=== PATIENT | female | born 1960 | race Caucasian/White ===

== ENCOUNTER 2023-10-19 14:41 | Outpatient (REF) | payer MEDICARE, SELFPAY | END 2023-10-19 14:42 | disposition home or self-care (01) | LOC: HO.BBR 14:41 | PROVIDERS: Visit Provider Internal Medicine | DX: Z13.89 Encounter for screening for other disorder (principal) ==

== ENCOUNTER 2024-04-18 14:57 | Outpatient (REF) | payer MEDICARE, SELFPAY | END 2024-04-18 14:58 | disposition home or self-care (01) | LOC: HO.BBR 14:57 | PROVIDERS: Visit Provider Internal Medicine | DX: Z13.89 Encounter for screening for other disorder (principal) ==

== ENCOUNTER 2025-05-28 14:00 | Outpatient (REF) | payer MEDICARE, SELFPAY ==
--- OUTSIDE RECORDS SUMMARY | 2025-05-28 16:30 | XMS_ITS | Clinical Summary ---
Author Organization [facility] Address [address] [place] [phone] Phone Care Team Providers Care Legal Adviser Name Role Phone Myrtle Salvador MD Primary Care Pr ovider Allergies Active Allergy Reactions Criticality Noted Date Comments Erythromycin Nausea And Vomiting 05/30/2008 Tramadol 10/09/2016 Nausea and vomiting Medications cholecalciferol (VITAMIN D-3) 50 mcg (2,000 unit) capsule Take 1 capsule (2,000 Units total) by mouth 1 (one) time each day. And an extra tablet once a week 4 Active simvastatin (ZOCOR) 20 mg tablet Take 1 tablet (20 mg total) by mouth at bedtime. for 180 days. 90 each 1 5 Active diclofenac (VOLTAREN) 1 % topical gel Apply 2 g topically 2 (two) times a day if needed (pain). 30 g 1 5 Active amLODIPine (NORVASC) 5 mg tablet TAKE 1.5 TABLET (7.5 MG) BY MOUTH DAILY 135 tablet 1 5 Active Active Problems Problem Noted Date Diagnosed Date Osteopenia 01/31/2025 Hypercholesteremia 08/08/2024 Overview (08/08/2024): Calculated ASCVD risk 7.8% Hereditary hemochromatosis (CMS/HCC V24) 024 Vitamin D deficiency 09/20/2020 Lyme disease 02/08/2020 Overview (08/08/2024): Positive IgG on Western blot. Referred to ID Situational anxiety 12/29/2018 Essential hypertension 12/21/2018 Herpes simplex 01/13/2014 Overview (08/08/2024): On buttocks Encounters Date Type Department Care Team Description 05/21/2025 Nurse Triage Adult [facility] [address] [place] [phone] Licha Heck MA 05/16/2025 1:00 PM EDT Office Visit [facility] Hematology Oncology [address] [place] [phone] Latanya Huffman MD Hereditary hemochromatosis (CMS/HCC V24) (Primary Dx) 05/16/2025 Telephone [facility] Hematology Oncology [address] [place] [phone] Karley Pozo [place] 03/09/2025 1:05 PM EDT - 03/09/2025 11:59 PM EDT Hospital Encounter Radiology Department - [address] [phone] Encounter for screening mammogram for breast cancer Discharge Disposition: Home or Self Care from Last 3 Months Immunizations Immunization Administration Dates Next Due Influenza Quadravalent, MDCK , 0.5ml, preservative free (Flucelvax) 6mo and older 06/22/2023,09/19/2020,06/22/2019,2017 Influenza Quadravalent, MDCK , 0.5ml, with preservative (Flucelvax) 6mo and older 06/28/2017 Influenza trivalent, 0.5mL ( Fluad) 65yo and older 10/11/2024 Influenza trivalent, 0.5mL, preservative free (Fluarix; FluLaval; Fluzone) ages 6mo and older (Afluria) 3 years and older 07/02/2016,05/14/2015 Td, Unspecified 05/04/2005 Tdap Tetanus diptheria acell ular pertussis (Boostrix; Adacel) 7yo and older 12/22/2023,11/30/2012 Surgical History Surgery Date Site/Laterality Comments WISDOM TOOTH EXTRACTION PROCEDURE: HISTORICAL WISDOM TEETH EXTRACTION Medical History Medical History Date Comments Other diseases of lung, not elsewhere classified DX:Other diseases of lung, n ot elsewhere classified Venereal disease, unspecified DX :Venereal disease, unspecified; COMMENT: hsv Herpes simplex 01/13/2014 DX:Herpes simple x; COMMENT: On buttocks Hyperlipidemia DX:Hyperlipidemi a Situational anxiety 12/29/2018 Essential hypertension 12/21/2018 Family History Medical History Relation Name Comments Diabetes Father age 77 , cardia c shunt Other cancer Maternal Grandmother lung Kidney failure Mother Other cancer Paternal Grandfather liver Leukemia Paternal Grandmother age 84 Breast cancer Neg Hx Colon cancer Neg Hx Ovarian cancer Neg Hx Uterine cancer Neg Hx Relation Name Status Comments Father Alive Maternal Grandmother Mother (Age 86) Paternal Grandfather Paternal Grandmother Social History Tobacco Use Types Packs/Day Years Used Date Smoking Tobacco: Never Cigarettes Qu it: 05/30/2006 Smokeless Tobacco: Never Tobacco Cessation:Counseling Given: Not Answered Alcohol Use Standard Drinks/Week Comments Not Currently 0 (1 standard drink = 0.6 oz pur e alcohol) Comments No Sex and Gender Information Value Date Recorded Sex Assigned at Not on file Legal Sex Female 9:40 AM EST Gender Identity Not on file Sexual Orientation Not on file Obstetrics History Para Term AB IAB SAB Ectopic Multiple Livin g Live Births 1 1 1 1 Date Outcome GA Total Labor Labor/2nd/3rd Weight Sex Type Anes PTL Jessica A1 A5 Name Clin Term Last Filed Vital Signs Vital Sign Reading Time Taken Comments Blood Pressure 152/79 05/16/2025 1:03 PM EDT Pulse 88 05/16/2025 1:03 PM EDT Temperature 36.8 C (98.3 F) 05/16/2025 1:03 PM EDT Respiratory Rate 14 12/21/2024 1:00 PM EDT Oxygen Saturation 99% 05/16/2025 1:03 PM EDT Inhaled Oxygen Concentration - - Weight 75.3 kg (166 lb) 05/16/2025 1:03 PM EDT Height 149.9 cm (4' 11 ) 05/16/2025 1:03 PM EDT Body Mass Index 33.53 05/16/2025 1:03 PM EDT Plan of Treatment Upcoming Encounters Date Type Department Care Team (Late st Contact Info) Description 05/30/2025 1:30 PM EDT Office Visit Adult Medicine [address] [phone] Lindy Collins PA [address] [place] [address] 06/27/2025 12:45 PM EST Office Visit Adult [address] [phone] Myrtle Salvador MD [address] [place] [address] 04/25/2026 1:00 PM EDT Office Visit [facility] Hematology Oncology [address] [place] [phone] Latanya Huffman MD [address] [place] [address] Health Maintenance Due Date Last Done Comments Pneumococcal Vaccine: 50+ Years (1 of 1 - PCV) 2008 Zoster Vaccines (1 of 2) 2008 Medicare Annual Wellness Visit 08/01/2022 Social Influencers of Health Screening 08/01/2022 Falls Risk Assessment 2023 Depression Screening 08/23/2024 COVID-19 Vaccine ( season) 2025 Influenza Vaccine (#1) 2025 , 06/22/2023, 09/19/2020, Additional history exists Hypertension/CHF/CAD Annual BMP Blood Test 10/11/2025 10/11/2024, 02/28/2024, 02/28/2024 Breast Cancer Screening 03/09/2027 03/09/20 25, 12/07/2023, 11/18/2023, Additional history exists Colorectal Cancer Screening: FIT-DNA (Cologuard) 11/03/2027 11/02/2024, 11/02/2024, 11/02/2024 Cholesterol Screening (Lipid Panel) 10/11/2029 10/11/2024, 02/28/2024, 02/28/2024 RSV Immunization Adult Patients (1 - 1-dose 75+ series) 2033 DTaP,Tdap,and Td Vaccines (4 - Td or Tdap) 12/21/2033 12/22/2023, 11/30/2012, 05/04/2005 Osteoporosis Screening (Bone Density Screening) 01/30/2035 01/30/2025 Hepatitis C Screening Completed 01/14/2016 HIB Vaccines Aged Out No longer eligi ble based on patient's age to complete this topic HPV Vaccines Aged Out No longer eligi ble based on patient's age to complete this topic Hepatitis A Vaccines Aged Out No long er eligible based on patient's age to complete this topic Hepatitis B Vaccines Aged Out No long er eligible based on patient's age to complete this topic IPV Vaccines Aged Out No longer eligi ble based on patient's age to complete this topic MMR Vaccines Aged Out No longer eligi ble based on patient's age to complete this topic Meningococcal ACWY Vaccine Aged Out N o longer eligible based on patient's age to complete this topic Meningococcal B Vaccine Aged Out No l onger eligible based on patient's age to complete this topic RSV Immunization Patients Under 20 months Aged Out No longer eligible based on patient's age to complete this topic Varicella Vaccines Aged Out No longer eligible based on patient's age to complete this topic Procedures Procedure Name Priority Date/Time Associated Diagnosis Comments CBC WITH AUTO DIFFERENTIAL Routine 05/08/2025 12:51 PM EDT Hereditary hemochromatosis (CMS/HCC V24) HEPATIC FUNCTION PANEL Routine 05/08/2025 12:51 PM EDT Hereditary hemochromatosis (CMS/HCC V24) IRON AND TIBC Routine 05/08/2025 12:51 PM EDT Hereditary hemochromatosis (CMS/HCC V24) FERRITIN Routine 05/08/2025 12:51 PM EDT Hereditary hemochromatosis (CMS/HCC V24) CBC AND DIFFERENTIAL Routine 05/08/2025 12:51 PM EDT Hereditary hemochromatosis (CMS/HCC V24) MG MAMMO DIGITAL SCREENING W FLOYD BILAT Routine 03/09/2025 1:16 PM EDT Encounter for screening mammogram for breast cancer BD BONE DENSITY DXA AXIAL SKELETON Routine 01/30/2025 1:20 PM EDT Essential hypertension Hypercholesteremia Hereditary hemochromatosis (CMS/HCC V24) Postmenopausal status LAB COLOGUARD COLON CANCER SCREEN Routine 11/02/2024 7:30 AM EDT Screen for colon cancer COMPREHENSIVE METABOLIC PANEL Routine 10/11/2024 1:51 PM EST Essential hypertension LIPID PANEL WITH REFLEX TO DIRECT LDL Routine 10/11/2024 1:51 PM EST Hypercholesteremia HEPATITIS C SCREENING Routine 01/14/2016 from Last 3 Months or Most Recently Relevant to Health Maintenance Results * (ABNORMAL) CBC auto differential (05/08/2025 12:51 PM EDT) WBC 8.6 4.8 - 10.8 K/mcL LAB HEMETOLOGY METHOD 05/08/2025 1:51 PM EDT [facility] RBC 4.90(H) 3.80 - 4.80 M/mcL LAB HEMETOLOGY METHOD 05/08/2025 1:51 PM EDT [facility] Hemoglobin 15.1 11.5 - 16.0 g/dL LAB HEMETOLOGY METHOD 05/08/2025 1:51 PM EDT [facility] Hematocrit 44.5 35.0 - 47.0 % LAB HEMETOLOGY METHOD 05/08/2025 1:51 PM EDT [facility] MCV 91.0 79.0 - 98.0 FL LAB HEMETOLOGY METHOD 05/08/2025 1:51 PM EDT [facility] MCH 30.9 27.0 - 32.0 pcg LAB HEMETOLOGY METHOD 05/08/2025 1:51 PM [facility] MCHC 33.9 32.0 - 37.0 g/dL LAB HEMETOLOGY METHOD 05/08/2025 1:51 PM [facility] RDW 13.7 11.0 - 15.0 % LAB HEMETOLOGY METHOD 05/08/2025 1:51 PM T [facility] Platelets 270 130 - 400 K/mcL LAB HEMETOLOGY METHOD 05/08/2025 1:51 PM [facility] MPV 10.1 7.0 - 11.0 FL LAB HEMETOLOGY METHOD 05/08/2025 1:51 PM [facility] NRBC 0.0 <1.0 % LAB HEMETOLOGY METHOD 05/08/2025 1:51 PM [facility] NRBC Absolute 0.00 <0.10 K/mcL LAB HEMETOLOGY METHOD 05/08/2025 1:51 PM [facility] Neutrophils Relative 67.4 % LAB HEMETOLOGY METHOD 05/08/2025 1:51 PM [facility] Lymphocytes Relative 22.6 % LAB HEMETOLOGY METHOD 05/08/2025 1:51 PM [facility] Monocytes Relative 8.5 % LAB HEMETOLOGY METHOD 05/08/2025 1:51 PM [facility] Eosinophils Relative 0.6 % LAB HEMETOLOGY METHOD 05/08/2025 1:51 PM [facility] Basophils Relative 0.7 % LAB HEMETOLOGY METHOD 05/08/2025 1:51 PM [facility] Immature Granulocytes Relative 0.2 % LAB HEMETOLOGY METHOD 05/08/2025 1:51 PM EDT [facility] Neutrophils Absolute 5.77 1.50 - 7.00 K/mcL LAB HEMETOLOGY METHOD 05/08/2025 1:51 PM EDT [facility] Lymphocytes Absolute 1.94 1.00 - 5.00 K/mcL LAB HEMETOLOGY METHOD 05/08/2025 1:51 PM EDT [facility] Monocytes Absolute 0.73 0.20 - 1.00 K/mcL LAB HEMETOLOGY METHOD 05/08/2025 1:51 PM EDT [facility] Eosinophils Absolute 0.05 0.00 - 0.50 K/mcL LAB HEMETOLOGY METHOD 05/08/2025 1:51 PM EDT [facility] Basophils Absolute 0.06 0.00 - 0.20 K/mcL LAB HEMETOLOGY METHOD 05/08/2025 1:51 PM EDT [facility] Immature Granulocytes Absolute 0.02 0.00 - 0.03 K/mcL LAB HEMETOLOGY METHOD 05/08/2025 1:51 PM EDT [facility] Blood Venous blood specimen / Unknown Venipuncture / Unknown 05/08/2025 12:51 PM EDT 05/08/2025 1:46 PM EDT Latanya Huffman MD LAB BLOOD ORDERABLES Final R esult [facility] [address] [place] [address], * (ABNORMAL) Iron and TIBC (05/08/2025 12:51 PM EDT) Iron 214(H) 40 - 150 mcg/dL LAB CHEMISTRY METHOD 05/08/2025 2:16 PM EDT [facility] TIBC 267 250 - 450 mcg/dL LAB CHEMISTRY METHOD 05/08/2025 2:16 PM EDT [facility] Iron Saturation 80(H) 15 - 50 % LAB CHEMISTRY METHOD 05/08/2025 2:16 PM EDT [facility] Blood Venous blood specimen / Unknown Venipuncture / Unknown 05/08/2025 12:51 PM EDT 05/08/2025 1:45 PM EDT Latanya Huffman MD LAB BLOOD ORDERABLES Final R esult Performing Organization Address City/[facility]/ZIP Co de Phone Number [facility] [address] [place] [address], [place] [phone] * Ferritin (05/08/2025 12:51 PM EDT) [facility] Ferritin 162 8 - 252 ng/mL LAB CHEMISTRY METHOD 05/08/2025 2:19 PM EDT [facility] Blood Venous blood specimen / Unknown Venipuncture / Unknown 05/08/2025 12:51 PM EDT 05/08/2025 1:45 PM EDT Latanya Huffman MD LAB BLOOD ORDERABLES Final R esult Performing Organization Address City/[facility]/ZIP Co de Phone Number [facility] [address] [place] [address], [place] [phone] * Hepatic function panel (05/08/2025 12:51 PM EDT) [facility] Total Protein 7.1 6.0 - 8.0 g/dL LAB CHEMISTRY METHOD 05/08/2025 2:19 PM EDT [facility] Albumin 4.2 3.2 - 5.0 g/dL LAB CHEMISTRY METHOD 05/08/2025 2:19 PM EDT [facility] Total Bilirubin 0.7 0.0 - 1.4 mg/dL LAB CHEMISTRY METHOD 05/08/2025 2:19 PM EDT [facility] Bilirubin, Direct 0.2 0.0 - 0.3 mg/dL LAB CHEMISTRY METHOD 05/08/2025 2:19 PM EDT [facility] Bilirubin, Indirect 0.5 0.0 - 1.1 mg/dL LAB CHEMISTRY METHOD 05/08/2025 2:19 PM EDT [facility] ALT (SGPT) 27 10 - 60 unit/L LAB CHEMISTRY METHOD 05/08/2025 2:19 PM EDT [facility] AST (SGOT) 25 10 - 42 unit/L LAB CHEMISTRY METHOD 05/08/2025 2:19 PM EDT [facility] Alkaline Phosphatase 74 42 - 121 unit/L LAB CHEMISTRY METHOD 05/08/2025 2:19 PM EDT [facility] Blood Venous blood specimen / Unknown Venipuncture / Unknown 05/08/2025 12:51 PM EDT 05/08/2025 1:45 PM EDT Latanya Dereje Huffman MD LAB BLOOD ORDERABLES Final R esult [facility] [address] [place] [address], [place] [phone] * MG Mammo Digital Screening w Floyd bilat (03/09/2025 1:16 PM EDT) Anatomical Region Laterality Modality Breast Bilateral Mammography 03/12/2025 6:08 PM EDT Impressions 03/12/2025 6:09 PM EDT No mammographic evidence of malignancy. BREAST DENSITY: C - The breasts are heterogeneously dense which may obscure small masses. BI-RADS CATEGORY: 1 - NEGATIVE RECOMMENDATION: Screening bilateral mammogram is recommended in 1 year. MAMMO LOCATION: [facility], [address] [place] [address], [phone], . -------- FINAL REPORT -------- Dictated By: Angelina Lewis Dictated Date: 03/12/2025 18:08 ET Assigned Physician: Angelina Lewis Reviewed and Electronically Signed By: Angelina Lewis Signed Date: 03/12/2025 18:09 ET Workstation ID: [id number] Transcribed By: Self Edit Transcribed Date: 03/12/2025 18:08 ET Narrative 03/12/2025 6:09 PM EDT EXAM: Screening Mammogram CLINICAL: 64 years old, Female, routine annual exam. COMPARISON: 11/10/2023 and as far back as 11/05/2020 TECHNIQUE: Bilateral MLO and CC views were obtained digitally with 3-D mammogram (digital breast tomosynthesis). Computer-aided detection was utilized in evaluation of this exam (CAD). FINDINGS: No new suspicious mass, architectural distortion, or suspicious calcifications. Procedure Note Angelina Lewis MD - 03/12/2025 EXAM: Screening Mammogram CLINICAL: 64 years old, Female, routine annual exam. COMPARISON: 11/10/2023 and as far back as 11/05/2020 TECHNIQUE: Bilateral MLO and CC views were obtained digitally with 3-Dmammogram (digital breast tomosynthesis). Computer-aided detection wasutilized in evaluation of this exam (CAD). FINDINGS: No new suspicious mass, architectural distortion, or suspiciouscalcifications. IMPRESSION: No mammographic evidence of malignancy. BREAST DENSITY: C - The breasts are heterogeneously dense which mayobscure small masses. BI-RADS CATEGORY: 1 - NEGATIVE RECOMMENDATION: Screening bilateral mammogram is recommended in 1 year. MAMMO LOCATION: [facility], [address] [place] [address], [phone], . -------- FINAL REPORT -------- Dictated By: Angelina Lewis Dictated Date: 03/12/2025 18:08 ET Assigned Physician: Angelina Lewis Reviewed and Electronically Signed By: Angelina Lewis Signed Date: 03/12/2025 18:09 ET Workstation ID: [id number] Transcribed By: Self Edit Transcribed Date: 03/12/2025 18:08 ET Myrtle Salvador MD IM BI PROCEDURE S Final Result * BD Bone Density DXA Axial Skeleton (01/30/2025 1:20 PM EDT) Anatomical Region Laterality Modality Wrist, Hip, L-spine Bone Densito metry 01/30/2025 7:18 PM EDT Impressions 01/30/2025 7:19 PM EDT Osteopenia. The NOF guidelines recommend that FDA approved medical therapies be considered in postmenopausal women and men age >50 years with a: i. Hip or vertebral (clinical or morphometric) fracture ii. T score of < -2.5 at the spine or hip iii. 10 year fracture probability by FRAX of >3% for hip fracture, or >20% for major osteoporotic fracture PLEASE NOTE: W.H.O. classification is based on lowest measured density at the spine, femoral neck, or total hip.This classification has prognostic significance when applied to post menopausal women and older men. 1) The World Health Organization defines low BMD as follows: T-score Normal at or > -1 Osteopenia < -1 and > -2.5 Osteoporosis at or < -2.5 without fractures Established osteoporosis < -2.5 with fractures -------- FINAL REPORT -------- Dictated By: Mango Guzman Dictated Date: 01/30/2025 19:18 ET Assigned Physician: Mango Guzman Reviewed and Electronically Signed By: Mango Guzman Signed Date: 01/30/2025 19:19 ET Workstation ID: [id number] Transcribed By: Self Edit Transcribed Date: 01/30/2025 19:18 ET Narrative 01/30/2025 7:19 PM EDT Clinical history: screening Scans of the lumbar spine and hips were performed on a [employer] Ber[employer] fan beam bone densitometer. Bone mineral density measurements and associated T and Z scores respectively are as follows: Lumbar Spine: L1-L4 BMD: 1.045 g/cm2 T-Score: 0 Z-Score: 1.8 Left Proximal Femur: Neck BMD: 0.721 g/cm2 T-Score: -1.2 Z-Score: 0.4 Total BMD: 0.951 g/cm2 T-Score: 0.1 Z-Score: 1.4 Compared with standards for the young adult, lowest measured bone density places the patient in the W.H.O. osteopenic range. FRAX 10 year probability of major osteoporotic fracture: 14% FRAX 10 year probability of hip fracture: 0.8% Population: [place] () Procedure Note Mango Guzman MD - 01/30/2025 Clinical history: screening Scans of the lumbar spine and hips were performed on a [employer] beam bone densitometer. Bone mineral density measurements and associated T and Z scoresrespectively are as follows: Lumbar Spine: L1-L4 BMD: 1.045 g/cm2 T-Score: 0 Z-Score: 1.8 Left Proximal Femur: Neck BMD: 0.721 g/cm2 T-Score: -1.2 Z-Score: 0.4 Total BMD: 0.951 g/cm2 T-Score: 0.1 Z-Score: 1.4 Compared with standards for the young adult, lowest measured bone densityplaces the patient in the W.H.O. osteopenic range. FRAX 10 year probability of major osteoporotic fracture: 14% FRAX 10 year probability of hip fracture: 0.8% Population: [place] () IMPRESSION: Osteopenia. The NOF guidelines recommend that FDA approved medical therapies beconsidered in postmenopausal women and men age >50 years with a: i. Hip or vertebral (clinical or morphometric) fracture ii. T score of < -2.5 at the spine or hip iii. 10 year fracture probability by FRAX of >3% for hip fracture, or >20%for major osteoporotic fracture PLEASE NOTE: W.H.O. classification is based on lowest measured density at the spine,femoral neck, or total hip.This classification has prognostic significancewhen applied to post menopausal women and older men. 1) The World Health Organization defines low BMD as follows: T-score Normal at or > -1 Osteopenia < -1 and > -2.5 Osteoporosis at or < -2.5 withoutfractures Established osteoporosis < -2.5 with fractures -------- FINAL REPORT -------- Dictated By: Mango Guzman Dictated Date: 01/30/2025 19:18 ET Assigned Physician: Mango Guzman Reviewed and Electronically Signed By: Mango Guzman Signed Date: 01/30/2025 19:19 ET Workstation ID: [id number] Transcribed By: Self Edit Transcribed Date: 01/30/2025 19:18 ET Lindy KILLIAN IMG DXA PROCEDURES Final Resu lt * Cologuard?? colon cancer screening (11/02/2024 7:30 AM EDT) COLOGUARD Negative Negative [facility] Comment: NEGATIVE TEST RESULT. A negative Cologuard result indicates a low likelihood that a colorectal cancer (CRC) or advanced adenoma (adenomatous polyps with more advanced pre-malignant features) is present. The chance that a person with a negative Cologuard test has a colorectal cancer is less than 1 in 1500 (negative predictive value >99.9%) or has an advanced adenoma is less than 5.3% (negative predictive value 94.7%). These data are based on a prospective cross-sectional study of 10,000 individuals at average risk for colorectal cancer who were screened with both Cologuard and colonoscopy. (Akash Rankin al, N Engl J Med 2014;370(14):5852-6859) The normal value (reference range) for this assay is negative. COLOGUARD RE-SCREENING RECOMMENDATION: Periodic colorectal cancer screening is an important part of preventive healthcare for asymptomatic individuals at average risk for colorectal cancer. Following a negative Cologuard result, the [place] [employer] and U.S. Multi-Society Task Force screening guidelines recommend a Cologuard re-screening interval of 3 years. References: [place] [employer] Guideline for Colorectal Cancer Screening: https://www.cancer.org/cancer/ulkrs-wrgduv-xlmzxu/rexbjiqfk-djsivcdaf-zlvmopp/ac s-rec ommendations.html.; Alejandro DK, Helen CR, Gómez FrederickK, Colorectal Cancer Screening: Recommendations for Physicians and Patients from the U.S. Multi-Society Task Force on Colorectal Cancer Screening , Am J Gastroenterology 2017; 112:1651-3472. TEST DESCRIPTION: Composite algorithmic analysis of stool DNA-biomarkers with hemoglobin immunoassay. Quantitative values of individual biomarkers are not reportable and are not associated with individual biomarker result reference ranges. Cologuard is intended for colorectal cancer screening of adults of either sex, 45 years or older, who are at average-risk for colorectal cancer (CRC). Cologuard has been approved for use by the U.S. FDA. The performance of Cologuard was established in a cross sectional study of average-risk adults aged 50-84. Cologuard performance in patients ages 45 to 49 years was estimated by sub-group analysis of near-age groups. Colonoscopies performed for a positive result may find as the most clinically significant lesion: colorectal cancer [4.0%], advanced adenoma (including sessile serrated polyps greater than or equal to 1cm diameter) [20%] or non- advanced adenoma [31%]; or no colorectal neoplasia [45%]. These estimates are derived from a prospective cross-sectional screening study of 10,000 individuals at average risk for colorectal cancer who were screened with both Cologuard and colonoscopy. (Akash Rankin al, N Engl J Med 2014;370(14):4597-5272.) Cologuard may produce a false negative or false positive result (no colorectal cancer or precancerous polyp present at colonoscopy follow up). A negative Cologuard test result does not guarantee the absence of CRC or advanced adenoma (pre-cancer). The current Cologuard screening interval is every 3 years. ([place] [employer] and U.S. Multi-Society Task Force). Cologuard performance data in a 10,000 patient pivotal study using colonoscopy as the reference method can be accessed at the following location: www.[employer]okle/results. Additional description of the Cologuard test process, warnings and precautions can be found at www.cologuard.com. Stool 11/02/2024 7:30 AM EDT 11/03/2024 10:47 AM EDT us Lindy KILLIAN [facility] MOLECULAR DIAGNOSTICS ORD ERABLES Final Result [employer] [address] [employer] [place]ITA [place] [id number] [place] [id number] * Lipid panel with reflex to direct LDL (10/11/2024 1:51 PM EST) Cholesterol 171 0 - 200 mg/dL LAB CHEMISTRY METHOD 10/11/2024 5:02 PM [facility] Triglycerides 85 0 - 150 mg/dL LAB CHEMISTRY METHOD 10/11/2024 5:02 PM [facility] HDL 85 >=40 mg/dL LAB CHEMISTRY METHOD 10/11/2024 5:02 PM [facility] LDL Calculated 69 0 - 100 mg/dL LAB CHEMISTRY METHOD 10/11/2024 5:02 PM [facility] VLDL Cholesterol Matthew 17 mg/dL LAB CHEMISTRY METHOD 10/11/2024 5:02 PM [facility] Non HDL Chol. (LDL+VLDL) 86 <145 mg/dL LAB CHEMISTRY METHOD 10/11/2024 5:02 PM [facility] Chol/HDL Ratio 2.0 0.0 - 4.4 LAB CHEMISTRY METHOD 10/11/2024 5:02 PM [facility] Blood Venous blood specimen / Unknown Venipuncture / Unknown 10/11/2024 1:51 PM EST 10/11/2024 1:51 PM EST Lindy KILLIAN LAB BLOOD ORDERABLES Final Re sult [facility] [address] [place] [address], * (ABNORMAL) Comprehensive metabolic panel (10/11/2024 1:51 PM EST) [facility] Sodium 140 133 - 145 mmol/L LAB CHEMISTRY METHOD 10/11/2024 4:59 PM [facility] Potassium 4.4 3.5 - 5.5 mmol/L LAB CHEMISTRY METHOD 10/11/2024 4:59 PM [facility] Chloride 105 96 - 110 mmol/L LAB CHEMISTRY METHOD 10/11/2024 4:59 PM [facility] CO2 26 21 - 32 mmol/L LAB CHEMISTRY METHOD 10/11/2024 4:59 PM [facility] Anion Gap 9 3 - 11 LAB CHEMISTRY METHOD 10/11/2024 4:59 PM [facility] Glucose 91 70 - 100 mg/dL LAB CHEMISTRY METHOD 10/11/2024 4:59 PM [facility] BUN 13 5 - 25 mg/dL LAB CHEMISTRY METHOD 10/11/2024 4:59 PM [facility] Creatinine 0.72 0.50 - 1.10 mg/dL LAB CHEMISTRY METHOD 10/11/2024 4:59 PM [facility] eGFR 92 >=60 mL/min/1. 73m2 LAB CHEMISTRY METHOD 10/11/2024 4:59 PM [facility] Comment:Calculation based on the Chronic Kidney Disease Epidemiology Collaboration (CKD-EPI) equation refit without adjustment for race. BUN/Creatinine Ratio 18.1 LAB CHEMISTRY METHOD 10/11/2024 4:59 PM [facility] Calcium 10.6(H) 8.5 - 10.5 mg/dL LAB CHEMISTRY METHOD 10/11/2024 4:59 PM [facility] AST (SGOT) 20 10 - 42 unit/L LAB CHEMISTRY METHOD 10/11/2024 4:59 PM [facility] ALT (SGPT) 28 10 - 60 unit/L LAB CHEMISTRY METHOD 10/11/2024 4:59 PM [facility] Alkaline Phosphatase 70 42 - 121 unit/L LAB CHEMISTRY METHOD 10/11/2024 4:59 PM [facility] Total Protein 7.8 6.0 - 8.0 g/dL LAB CHEMISTRY METHOD 10/11/2024 4:59 PM [facility] Albumin 4.8 3.2 - 5.0 g/dL LAB CHEMISTRY METHOD 10/11/2024 4:59 PM [facility] Total Bilirubin 0.8 0.0 - 1.4 mg/dL LAB CHEMISTRY METHOD 10/11/2024 4:59 PM EST [facility] Blood Venous blood specimen / Unknown Venipuncture / Unknown 10/11/2024 1:51 PM EST 10/11/2024 1:51 PM EST Lindy KILLIAN LAB BLOOD ORDERABLES Final Re sult [facility] [address] [place] [address], [place] [phone] * Hepatitis C Screening (01/14/2016) [facility] Hepatitis C Screening Abstracted Historical Provider HEALTH MAINTENANCE Final Result from Last 3 Months or Most Recently Relevant to Health Maintenance Insurance MEDICAID - [place] [employer] MEDICARE Care Teams Legal Adviser Relationship Specialty Start Date End Date Myrtle Salvador MD [address] [place], [place] PCP - General Internal Medicine 03/09/22
--- OUTSIDE RECORDS SUMMARY | 2025-05-28 16:30 | XMS_ITS | Clinical Summary ---
Author Organization [facility] Address [address] [place] [id number] Phone Care Team Providers Care Predictive Maintenance Specialist Name Role Phone Aydee Lehman MD Primary Care Provider Allergies No known active allergies Medications amLODIPine (NORVASC) 5 MG tablet Take 5 mg by mouth daily. Active Active Problems Problem Noted Date Diagnosed Date Lyme disease 09/19/2020 Assessment & Plan (09/19/2020 1:33 PM EST): The patient's labs from May are exactly what I would expect if she had treated Lyme disease in February. IgM is an early antibody, but may be negative at the time of diagnosis. Treatment with antibiotics may blunt the IgM response, but the diagnosis is mainly a clinical one. IgM, when present, is not long-lasting and it is not surprising that it was negative in May IgG however, which is later to develop, is long-lasting and may persist indefinitely. Given that the patient did quite well clinically, I would not expect her to develop any post Lyme symptoms at this point. I did review Lyme prevention techniques, including wardrobe choices, permethrin on her close, DEET on her skin, behavior while in the brush, and most importantly, nightly take checks. If she finds a tick and she knows it has been present for less than 24 hours she can remove it. If she finds a tick embedded and believes it has been present for more than 24 hours she should call her provider for short course of doxycycline. Family History Relation Status Comments Father Alive Mother Social History Tobacco Use Types Packs/Day Years Used Date Smoking Tobacco: Former Alcohol Use Standard Drinks/Week Comments Yes 1 (1 standard drink = 0.6 oz pur e alcohol) Education Answer Date Recorded Are you interested in more education? Not on devin e 12/18/2022 Are you concerned about learning? Not on file 12/18/2022 No 12/18/2022 No 12/18/2022 Digital Access Answer Date Recorded No 01/16/2023 No 01/16/2023 No 01/16/2023 Reliable internet access at home? Not on file 01/16/2023 Device with a working camera? Not on file Comments Unknown Sex and Gender Information Value Date Recorded Sex Assigned at Not on file Legal Sex Female 9:07 AM EST Gender Identity Not on file Sexual Orientation Not on file Last Filed Vital Signs Vital Sign Reading Time Taken Comments Blood Pressure 144/78 09/19/2020 12:57 PM EST Pulse 96 09/19/2020 12:57 PM EST Temperature 36.6 C (97.8 F) 09/19/2020 12:57 PM EST Respiratory Rate - - Oxygen Saturation 97% 09/19/2020 12:57 PM EST Inhaled Oxygen Concentration - - Weight 78.5 kg (173 lb) 09/19/2020 12:57 PM EST Height - - Body Mass Index - - Plan of Treatment Health Maintenance Due Date Last Done Comments LIPID PANEL 1958 DEPRESSION SCREENING 1970 SMOKING Hx and SMOKELESS TOBACCO SCREENING 1971 HEPATITIS C SCREENING 1976 MAMMOGRAM 1998 COLOGUARD 2003 COLONOSCOPY 2003 COLORECTAL CANCER SCREENING 2003 FIT TEST 2003 FOBT 2003 SIGMOIDOSCOPY 2003 VIRTUAL COLONOSCOPY 2003 PNEUMOCOCCAL VACCINES (50+ years) (1 of 1 - PCV) 2008 ZOSTER VACCINES (1 of 2) 2008 Adult Td,Tdap Booster 11/30/2022 11/30/2012, 005 OSTEOPOROSIS SCREENING INITIAL (ONE-TIME) 2023 INFLUENZA VACCINE (#1) 2025 , 06/22/2019, 06/09/2018, Additional history exists COVID-19 VACCINE ( - 2024- season) 2025 RSV VACCINE (1 - 1-dose 75+ series) 2033 HEPATITIS A VACCINES Aged Out No long er eligible based on patient's age to complete this topic HIB VACCINES Aged Out No longer eligi ble based on patient's age to complete this topic MENINGOCOCCAL VACCINES (ACWY) Aged Out No longer eligible based on patient's age to complete this topic MENINGOCOCCAL VACCINES (B) Aged Out N o longer eligible based on patient's age to complete this topic Medical Devices Not on file Insurance [facility] [place] [id number] [facility] [place] [id number] [facility] [place] [facility] [place] Address: [address] [address] Care Teams Predictive Maintenance Specialist Relationship Specialty Start Date End Date Aydee Lehman MD PCP - General Internal Medicine 09/19/20 Additional Source Comments The information contained in this document represents components of the legal health record. It is not the complete legal health record.[facility]
--- OUTSIDE RECORDS SUMMARY | 2025-05-28 16:30 | XMS_ITS | Clinical Summary ---
Author Organization [facility] Address [address] [place] [address] Care Team Providers Care Marine Structural Welder Name Role Phone Myrtle Salvador MD Primary Care Pr ovider Allergies No known active allergies Medications Medication Sig Dispensed Refills Start Date End Date Status cyclobenzaprine (FLEXERIL) 10 MG tablet Take 1 tablet (10 mg total) by mouth 3 (three) times a day as needed. 0 Active amLODIPine (NORVASC) tablet 5 mg Take 1 tablet (5 mg total) by mouth daily. 0 Active Cholecalciferol 50 MCG (2000 UT) CAPS Take by mouth. 0 Active Triamcinolone Acetonide 55 MCG/ACT AERO spray or apply inside Nose. 0 Active simvastatin (ZOCOR) tablet 10 mg Take 1 tablet (10 mg total) by mouth every night at bedtime. 0 Active Active Problems No known active problems Social History Tobacco Use Types Packs/Day Years Used Date Smoking Tobacco: Never Smokeless Tobacco: Never Tobacco Cessation:Counseling Given: Not Answered Alcohol Use Standard Drinks/Week Comments Not Currently 0 (1 standard drink = 0.6 oz pur e alcohol) Sex and Gender Information Value Date Recorded Sex Assigned at Not on file Gender Identity Not on file Sexual Orientation Not on file Job Start Date Occupation Industry Not on file Not on file Not on file Last Filed Vital Signs Vital Sign Reading Time Taken Comments Blood Pressure 144/78 06/14/2024 1:39 PM EDT Pulse 94 06/14/2024 1:39 PM EDT Temperature 37.3 C (99.1 F) 06/14/2024 1:39 PM EDT Respiratory Rate - - Oxygen Saturation 98% 06/14/2024 1:39 PM EDT Inhaled Oxygen Concentration - - Weight 74.4 kg (164 lb) 06/14/2024 1:39 PM EDT Height 149.9 cm (4' 11 ) 09/29/2023 1:35 PM EST Body Mass Index 33.12 09/29/2023 1:35 PM EST Plan of Treatment Health Maintenance Due Date Last Done Comments Hepatitis C Screening 1960 COVID-19 Vaccine (#1) 03/05/1959 Depression Screening 1970 Preventative Health Evaluation 1976 Colon Cancer Screening (Colonoscopy) 2003 Breast Cancer Screening (Mammogram) 2008 Shingrix-Zoster Vaccine (1 of 2) 2008 Fall Risk Assessment 2023 Osteoporosis Screening (DEXA Scan) 2023 Pneumococcal Vaccine (1 of 1 - PCV) 2023 Influenza Vaccine (#1) 2025 3, 09/19/2020, 06/22/2019, Additional history exists RSV Adult > 60+ Yrs or (1 - 1-dose 75+ series) 2033 DTap / Tdap / Td (3 - Td or Tdap) 12/21/2033 12/22/2023, 11/30/2012 Hepatitis B Vaccines Aged Out No long er eligible based on patient's age to complete this topic RSV Ped < 20 months Aged Out No longe r eligible based on patient's age to complete this topic Care Teams Marine Structural Welder Relationship Specialty Start Date End Date Myrtle Salvador MD [address] [place] [address] PCP - General 07/30/23
== END 2025-05-28 14:01 | disposition home or self-care (01) ==
LOC: HO.BBR 14:00
PROVIDERS: PCP Family Medicine; Visit Provider Internal Medicine
DX: Z13.89 Encounter for screening for other disorder (principal)